=== PATIENT | female | born 1955 | race Caucasian/White ===

== ENCOUNTER → 2021-06-23 08:55 | Outpatient (CLI) | payer OTHER, SELFPAY ==
[2021-06-23 19:51] LABS: Add Manual Diff / Slide Review NO; Basophils Absolute Auto 100 /uL (0-100); Basophils Percent Auto 1.1 % (0-2); Eosinophils Absolute Auto 200 /uL (0-450); Hematocrit 37.6 % (36-46); Hemoglobin 12.3 g/dL (12.0-16.0); Lymphocytes Absolute Auto 1900 /uL (1100-4500); Mean Corpuscular HGB Conc 32.6 % (30-36); Mean Corpuscular Hemoglobin 31.2 PG (26-34); Mean Corpuscular Volume 95.4 fL (80-100); Monocytes Absolute Auto 700 /uL (0-900); Neutrophils Absolute Auto 6700 /uL (1500-7000); Neutrophils Percent Auto 69.9 % (50-75); Platelet Count 271 X10^3/uL (150-400); Red Blood Cell Count 3.93 X10^6/uL (4.0-5.2); Red Cell Distribution Width 14.3 % (11.6-14.8); White Blood Cell Count 9.6 X10^3/uL (4.5-11.0)
[2021-06-23 20:00] LABS: Hemoglobin A1C% w Est Avg Glu 5.8 % (4.0-6.0)
[2021-06-23 20:04] LABS: Alanine Aminotransferase 34 IU/L (<35); Albumin 4.1 g/dL (3.5-5.0); Albumin Globulin Ratio 1.1 (1.0-2.8); Alkaline Phosphatase 86 U/L (38-126); Aspartate Aminotransferase 33 IU/L (14-36); BUN Creatinine Ratio 16.7 (6-22); Bilirubin Total 0.2 mg/dL (0.2-1.3); Blood Urea Nitrogen 10 mg/dL (7-17); Calcium 9.5 mg/dL (8.4-10.2); Carbon Dioxide 31 mmol/L (22-32); Chloride 103 mmol/L (98-107); Cholesterol 204 mg/dL (140-199); Estimated Glomerular Filt Rate > 60.0 mL/min (>60); Globulin 3.7 g/dL (1.7-4.1); Glucose 134 mg/dL (80-110); HDL Cholesterol 54 mg/dL (40-60); HEMOLYSIS < 15 (0-50); LDL Cholesterol Calculated 90 mg/dL (<100); Potassium 4.5 mmol/L (3.4-5.1); Sodium 141 mmol/L (137-145); Total Protein 7.8 g/dL (6.3-8.2); Triglycerides 299 mg/dL (35-150)
[2021-06-23 20:17] LABS: Vitamin D 25 Hydroxy (D3) 41.5 ng/mL (30.0-100.0)
[2021-06-23 20:29] LABS: TSH w/ Reflex to FT4 2.38 uIU/mL (0.47-4.68)
== END ==
PROVIDERS: PCP Physician Assistant Medical; Visit Provider Physician Assistant Medical
DX: E11.9 Type 2 diabetes mellitus without complications (principal); E08.40 Diabetes mellitus due to underlying condition with diabetic neuropathy, unspecified; E55.9 Vitamin D deficiency, unspecified; E66.3 Overweight; E78.5 Hyperlipidemia, unspecified; I10 Essential (primary) hypertension; R73.9 Hyperglycemia, unspecified
CPT/HCPCS: 80053; 80061; 82306; 83036; 84443; 85025

== ENCOUNTER → 2021-09-20 08:42 | Outpatient (CLI) | payer OTHER, SELFPAY ==
[2021-09-20 19:51] LABS: COVID19 - ORCAS (NP or Nasal) Negative (Negative)
== END ==
PROVIDERS: PCP Physician Assistant Medical; Visit Provider Family Medicine
DX: U07.1 COVID-19 (principal)
CPT/HCPCS: U0003

== ENCOUNTER → 2021-09-21 15:09 | Outpatient (CLI) | payer OTHER, SELFPAY ==
--- NOTE | 2021-09-22 18:29 | DI.NM.S_ITS ---
DATE OF SERVICE: 09/21/2021 PROCEDURE: Exercise stress test. INDICATION: Palpitation, hypertension. CARDIAC STRESS: The patient underwent exercise stress test under the supervision of an attending staff. She walked on Jakub protocol for 3 minutes and 11 seconds, achieved 92 percent of target heart rate. There was hypertensive blood pressure response. Resting blood pressure 158/84 mmHg and peak blood pressure 220/110 mmHg. Baseline rhythm was sinus with up to 0.[address] depression in inferior leads, as well as lead V4 to V6, and some T- wave inversion in inferior lateral leads. During exercise, the patient had worsening ST depression up to 1 to 1.5 mm in the inferior lateral leads, which became downsloping in recovery. No complex significant arrhythmias seen. The patient developed significant shortness of breath, as well as chest tightness. Chest discomfort on a scale of 1 to 10, was 3 in intensity. It got resolved in recovery. CONCLUSION: Inconclusive exercise stress test for inducible ischemia due to baseline ST-T changes. However, the patient has anginal-type of chest discomfort and profound shortness of breath during exercise. Poor exercise tolerance. Exercise duration 3 minutes and 11 seconds on Jakub protocol with RAY positive 66 percent. Hypertensive blood pressure response. Baseline blood pressure 158/84 mmHg and peak blood pressure 220/110 mmHg. No complex arrhythmias seen. Correlate clinically and consider repeated stress with imaging modality like this perfusion study for better ischemic evaluation. Tyesha Lee - EBER/samantha/aram doc#: [id number]/job#: [id number] dd: 09/22/2021 17:26:00 dt: 09/22/2021 17:38:00 DICTATING MD/COPIES TO: Yolanda Arguelles MD; Antony Izquierdo MD COPIES MNE: CHAYITO;
== END ==
PROVIDERS: PCP Physician Assistant Medical; Referring Provider Internal Medicine Cardiovascular Disease; Visit Provider Internal Medicine Cardiovascular Disease
DX: R07.89 Other chest pain (principal); R00.2 Palpitations; I10 Essential (primary) hypertension; R06.02 Shortness of breath
CPT/HCPCS: 93017

== ENCOUNTER → 2021-12-15 12:03 | Outpatient (CLI) | payer OTHER, SELFPAY ==
[2021-12-15 19:00] LABS: BUN Creatinine Ratio 16.7 (6-22); Blood Urea Nitrogen 14 mg/dL (7-17); Calcium 9.9 mg/dL (8.4-10.2); Carbon Dioxide 32 mmol/L (22-32); Chloride 99 mmol/L (98-107); Estimated Glomerular Filt Rate > 60.0 mL/min (>60); Glucose 136 mg/dL (80-110); HEMOLYSIS < 15 (0-50); Potassium 4.3 mmol/L (3.4-5.1); Sodium 139 mmol/L (137-145)
[2021-12-15 19:22] LABS: Cortisol Random 10.2 ug/dL
[2021-12-30 11:54] LABS: Aldosterone/Renin Activity Rat 4.4 (0.0-30.0); Plama Renin, LC/MS/MS 1.383 ng/mL/hr (0.167-5.380)
== END ==
PROVIDERS: PCP Physician Assistant Medical; Visit Provider Internal Medicine Cardiovascular Disease
DX: I10 Essential (primary) hypertension (principal); R00.2 Palpitations; R94.39 Abnormal result of other cardiovascular function study
CPT/HCPCS: 80048; 82088; 82384; 82533; 84244

== ENCOUNTER → 2022-12-01 14:04 | Outpatient (CLI) | payer MEDICARE, SELFPAY | PROVIDERS: PCP Physician Assistant Medical; Visit Provider Physician Assistant Medical | DX: T14.8XXA Other injury of unspecified body region, initial encounter (principal); W50.3XXA Accidental bite by another person, initial encounter | CPT/HCPCS: 87070; 87075; 87077; 87147; 87185; 87186; 87205 ==

== ENCOUNTER → 2022-12-27 09:21 | Outpatient (CLI) | payer MEDICARE, SELFPAY ==
[2022-12-27 19:32] LABS: Add Manual Diff / Slide Review NO; Basophils Absolute Auto 0 /uL (0-100); Basophils Percent Auto 0.6 % (0-2); Eosinophils Absolute Auto 200 /uL (0-450); Eosinophils Percent Auto 3.6 % (2-4); Hematocrit 35.2 % (36-46); Lymphocytes Absolute Auto 1700 /uL (1100-4500); Lymphocytes Percent Auto 27.3 % (25-40); Mean Corpuscular Hemoglobin 31.3 PG (26-34); Mean Corpuscular Volume 92.1 fL (80-100); Monocytes Absolute Auto 500 /uL (0-900); Neutrophils Absolute Auto 3800 /uL (1500-7000); Neutrophils Percent Auto 60.5 % (50-75); Platelet Count 260 X10^3/uL (150-400); Red Blood Cell Count 3.82 X10^6/uL (4.0-5.2); Red Cell Distribution Width 13.9 % (11.6-14.8); White Blood Cell Count 6.4 X10^3/uL (4.5-11.0)
[2022-12-27 19:52] LABS: Alanine Aminotransferase 30 IU/L (<35); Albumin 3.9 g/dL (3.5-5.0); Alkaline Phosphatase 67 U/L (38-126); Aspartate Aminotransferase 28 IU/L (14-36); BUN Creatinine Ratio 18.5 (6-22); Bilirubin Total 0.3 mg/dL (0.2-1.3); Blood Urea Nitrogen 12 mg/dL (7-17); Calcium 9.1 mg/dL (8.4-10.2); Carbon Dioxide 29 mmol/L (22-32); Chloride 99 mmol/L (98-107); Cholesterol 192 mg/dL (140-199); Estimated Glomerular Filt Rate > 60 mL/min (>60); Globulin 3.9 g/dL (1.7-4.1); Glucose 133 mg/dL (80-110); HDL Cholesterol 57 mg/dL (40-60); HEMOLYSIS < 15 (0-50); LDL Cholesterol Calculated 86 mg/dL (<100); Potassium 4.2 mmol/L (3.4-5.1); Sodium 136 mmol/L (137-145); Total Protein 7.8 g/dL (6.3-8.2); Triglycerides 245 mg/dL (35-150)
[2022-12-29 02:07] LABS: Labcorp Hemoglobin (Hb) A1c 6.2 % (4.8-5.6)
== END ==
PROVIDERS: PCP Physician Assistant Medical; Visit Provider Physician Assistant Medical
DX: E11.65 Type 2 diabetes mellitus with hyperglycemia (principal); E55.9 Vitamin D deficiency, unspecified; E66.3 Overweight; E78.5 Hyperlipidemia, unspecified; F10.10 Alcohol abuse, uncomplicated; I10 Essential (primary) hypertension
CPT/HCPCS: 80053; 80061; 83036; 84443; 85025

== ENCOUNTER → 2023-04-05 09:08 | Outpatient (CLI) | payer MEDICARE, SELFPAY ==
[2023-04-05 20:04] LABS: Add Manual Diff / Slide Review NO; Basophils Absolute Auto 0 /uL (0-100); Basophils Percent Auto 0.7 % (0-2); Eosinophils Absolute Auto 200 /uL (0-450); Eosinophils Percent Auto 2.8 % (2-4); Hematocrit 36.4 % (36-46); Hemoglobin 12.2 g/dL (12.0-16.0); Lymphocytes Absolute Auto 1500 /uL (1100-4500); Lymphocytes Percent Auto 21.3 % (25-40); Mean Corpuscular HGB Conc 33.7 % (30-36); Mean Corpuscular Hemoglobin 31.5 PG (26-34); Mean Corpuscular Volume 93.4 fL (80-100); Monocytes Absolute Auto 600 /uL (0-900); Monocytes Percent Auto 8.3 % (3-14); Neutrophils Absolute Auto 4700 /uL (1500-7000); Neutrophils Percent Auto 66.9 % (50-75); Platelet Count 251 X10^3/uL (150-400); Red Blood Cell Count 3.89 X10^6/uL (4.0-5.2); Red Cell Distribution Width 13.6 % (11.6-14.8); White Blood Cell Count 7.1 X10^3/uL (4.5-11.0)
[2023-04-05 20:37] LABS: Alanine Aminotransferase 34 IU/L (<35); Albumin Globulin Ratio 1.1 (1.0-2.8); Alkaline Phosphatase 72 U/L (38-126); Aspartate Aminotransferase 31 IU/L (14-36); BUN Creatinine Ratio 16.7 (6-22); Bilirubin Total 0.4 mg/dL (0.2-1.3); Blood Urea Nitrogen 11 mg/dL (7-17); Calcium 9.2 mg/dL (8.4-10.2); Carbon Dioxide 30 mmol/L (22-32); Chloride 102 mmol/L (98-107); Cholesterol 148 mg/dL (140-199); Estimated Glomerular Filt Rate > 60 mL/min (>60); Globulin 3.8 g/dL (1.7-4.1); Glucose 135 mg/dL (80-110); HDL Cholesterol 53 mg/dL (40-60); HEMOLYSIS < 15 (0-50); LDL Cholesterol Calculated 49 mg/dL (<100); Potassium 4.3 mmol/L (3.4-5.1); Sodium 136 mmol/L (137-145); Total Protein 7.8 g/dL (6.3-8.2); Triglycerides 228 mg/dL (35-150)
[2023-04-05 21:05] LABS: Microalbumin Urine Random < 0.6 mg/dL (0-1.6)
[2023-04-06 22:07] LABS: x Labcorp Estim. Avg Glu (eAG) 131 mg/dL (.); x Labcorp Hemoglobin A1c 6.2 % (4.8-5.6)
== END ==
PROVIDERS: PCP Physician Assistant Medical; Visit Provider Physician Assistant Medical
DX: E66.3 Overweight; E78.5 Hyperlipidemia, unspecified; I48.91 Unspecified atrial fibrillation; L03.90 Cellulitis, unspecified; R00.2 Palpitations; E11.9 Type 2 diabetes mellitus without complications; I10 Essential (primary) hypertension
CPT/HCPCS: 80053; 80061; 82043; 82570; 83036; 85025

== ENCOUNTER → 2023-05-17 13:02 | Outpatient (CLI) | payer MEDICARE, SELFPAY ==
[2023-05-17 19:34] LABS: Alanine Aminotransferase 31 IU/L (<35); Albumin 3.9 g/dL (3.5-5.0); Albumin Globulin Ratio 1.1 (1.0-2.8); Alkaline Phosphatase 66 U/L (38-126); Aspartate Aminotransferase 35 IU/L (14-36); BUN Creatinine Ratio 19.2 (6-22); Bilirubin Total 0.3 mg/dL (0.2-1.3); Blood Urea Nitrogen 14 mg/dL (7-17); Calcium 9.3 mg/dL (8.4-10.2); Carbon Dioxide 31 mmol/L (22-32); Chloride 98 mmol/L (98-107); Estimated Glomerular Filt Rate > 60 mL/min (>60); Globulin 3.6 g/dL (1.7-4.1); Glucose 106 mg/dL (80-110); HEMOLYSIS < 15 (0-50); Potassium 4.2 mmol/L (3.4-5.1); Sodium 136 mmol/L (137-145); Total Protein 7.5 g/dL (6.3-8.2)
== END ==
PROVIDERS: PCP Physician Assistant Medical; Visit Provider Physician Assistant Medical
DX: I10 Essential (primary) hypertension (principal)
CPT/HCPCS: 80053

== ENCOUNTER → 2023-09-05 09:35 | Outpatient (CLI) | payer MEDICARE, SELFPAY ==
[2023-09-05 20:37] LABS: Alanine Aminotransferase 32 IU/L (<35); Albumin 3.9 g/dL (3.5-5.0); Albumin Globulin Ratio 1.2 (1.0-2.8); Alkaline Phosphatase 59 U/L (38-126); Aspartate Aminotransferase 31 IU/L (14-36); BUN Creatinine Ratio 18.8 (6-22); Bilirubin Total 0.4 mg/dL (0.2-1.3); Blood Urea Nitrogen 12 mg/dL (7-17); Calcium 9.6 mg/dL (8.4-10.2); Carbon Dioxide 32 mmol/L (22-32); Chloride 97 mmol/L (98-107); Estimated Glomerular Filt Rate > 60 mL/min (>60); Globulin 3.3 g/dL (1.7-4.1); Glucose 113 mg/dL (80-110); HEMOLYSIS < 15 (0-50); Sodium 137 mmol/L (137-145); Total Protein 7.2 g/dL (6.3-8.2)
[2023-09-05 20:44] LABS: Hemoglobin A1C% w Est Avg Glu 6.3 % (4.0-6.0)
== END ==
PROVIDERS: PCP Physician Assistant Medical; Visit Provider Physician Assistant Medical
DX: I10 Essential (primary) hypertension (principal); I48.91 Unspecified atrial fibrillation; F10.10 Alcohol abuse, uncomplicated; E08.40 Diabetes mellitus due to underlying condition with diabetic neuropathy, unspecified
CPT/HCPCS: 80053; 83036

== ENCOUNTER → 2023-12-25 09:32 | Outpatient (CLI) | payer MEDICARE, SELFPAY ==
[2023-12-25 19:40] LABS: Add Manual Diff / Slide Review NO; Basophils Absolute Auto 100 /uL (0-100); Basophils Percent Auto 0.7 % (0-2); Eosinophils Absolute Auto 300 /uL (0-450); Hematocrit 35.4 % (36-46); Hemoglobin 11.9 g/dL (12.0-16.0); Lymphocytes Absolute Auto 2000 /uL (1100-4500); Lymphocytes Percent Auto 22.2 % (25-40); Mean Corpuscular HGB Conc 33.6 % (30-36); Mean Corpuscular Hemoglobin 31.5 PG (26-34); Mean Corpuscular Volume 93.6 fL (80-100); Monocytes Absolute Auto 600 /uL (0-900); Monocytes Percent Auto 7.3 % (3-14); Neutrophils Absolute Auto 6000 /uL (1500-7000); Neutrophils Percent Auto 66.8 % (50-75); Platelet Count 334 X10^3/uL (150-400); Red Blood Cell Count 3.78 X10^6/uL (4.0-5.2); Red Cell Distribution Width 13.9 % (11.6-14.8); White Blood Cell Count 8.9 X10^3/uL (4.5-11.0)
[2023-12-25 19:54] LABS: Alanine Aminotransferase 22 IU/L (<35); Albumin 3.8 g/dL (3.5-5.0); Albumin Globulin Ratio 1.1 (1.0-2.8); Alkaline Phosphatase 64 U/L (38-126); Aspartate Aminotransferase 26 IU/L (14-36); BUN Creatinine Ratio 21.5 (6-22); Bilirubin Total 0.5 mg/dL (0.2-1.3); Blood Urea Nitrogen 14 mg/dL (7-17); Calcium 9.5 mg/dL (8.4-10.2); Carbon Dioxide 33 mmol/L (22-32); Chloride 102 mmol/L (98-107); Cholesterol 138 mg/dL (140-199); Estimated Glomerular Filt Rate > 60 mL/min (>60); Globulin 3.5 g/dL (1.7-4.1); Glucose 124 mg/dL (80-110); HDL Cholesterol 54 mg/dL (40-60); HEMOLYSIS < 15 (0-50); LDL Cholesterol Calculated 48 mg/dL (<100); Potassium 4.1 mmol/L (3.4-5.1); Sodium 139 mmol/L (137-145); Total Protein 7.3 g/dL (6.3-8.2); Triglycerides 178 mg/dL (35-150)
[2023-12-25 20:21] LABS: Creatinine Urine Random 33.7 mg/dL
[2023-12-25 20:24] LABS: Microalbumi Creatinin Ratio Ur 26.7 ug/mg CR (<30); Microalbumin Urine Random 0.9 mg/dL (0-1.6)
== END ==
PROVIDERS: PCP Physician Assistant Medical; Visit Provider Physician Assistant Medical
DX: E11.9 Type 2 diabetes mellitus without complications (principal)
CPT/HCPCS: 80053; 80061; 82043; 82570; 85025

== ENCOUNTER → 2024-06-24 10:02 | Outpatient (CLI) | payer MEDICARE, SELFPAY ==
--- NOTE | 2024-06-24 | DI.ECHO.S_ITS ---
[facility]+ [facility] : : [id number] : : [place] : : [id number] : : Phone: [phone] Echocardiogram Report + + :Name: TERRY BROCK Study Date: 06/24/2024 Height: 66 in : :[facility] ReadingLocation: Weight: 180 lb : : Gender: Female BSA: 1.9 m2 : :: 1955 Age: 68 yrs BP: 149/84 mmHg: :Reason For Study: DYSPNEA ON EXERTION, CHEST PAIN : :Ordering Physician: ANTONIA, : :BETTE Performed By: Deysi Dan : :Referring: BETTE KINGHT : + + Interpretation Summary The left ventricle is normal in size and wall thickness. The left ventricular ejection fraction is normal. The ejection fraction is estimated to be 60-65%. The right ventricle is normal in size and function. There is mild mitral regurgitation. There is mild tricuspid regurgitation. Pulmonary artery pressures cannot be estimated because of the lack of a measurable TR jet velocity. The IVC is of normal diameter and collapses greater than 50% with a sniff. This suggests a low right atrial pressure of 3 mm Hg. Mild atherosclerotic plaque(s) in the aortic arch. Procedure: A two-dimensional transthoracic echocardiogram with color flow and Doppler was performed. The study quality was technically adequate. There is no prior echocardiogram noted for this patient. The patient was in sinus rhythm with heart rates between 74-86 bpm during the exam. Left Ventricle: The left ventricle is normal in size and wall thickness. There is no thrombus. The ejection fraction is estimated to be 60-65%. The left ventricular ejection fraction is normal. There are no focal wall motion abnormalities. MV E/A: 2.2 Med Peak E' Paul: 7.6 cm/sec E/E' med: 11.6. Right Ventricle: The right ventricle is normal in size and function. Atria: The left atrium is mildly dilated. Right atrial size is normal. There is no Doppler evidence for an interatrial shunt. Mitral Valve: There is mild mitral annular calcification. There is mild mitral regurgitation. Aortic Valve: The aortic valve is trileaflet. The aortic valve is mildly calcified. There is discrete nodular thickening of the left coronary cusp. There is no aortic valve stenosis. No aortic regurgitation is present. Tricuspid Valve: The tricuspid valve is normal in structure and function. There is mild tricuspid regurgitation. Pulmonary artery pressures cannot be estimated because of the lack of a measurable TR jet velocity. Pulmonic Valve: The pulmonic valve leaflets are thin and pliable; valve motion is normal. There is mild pulmonic regurgitation. Great Vessels: The aortic root is normal size. The dimensions of the ascending aorta are normal. Mild atherosclerotic plaque(s) in the aortic arch. The IVC is of normal diameter and collapses greater than 50% with a sniff. This suggests a low right atrial pressure of 3 mm Hg. Pericardium/ Pleura There is no pericardial effusion. There is no pleural effusion. MMode/2D Measurements & Calculations LVIDd: 4.2 cm LVOT diam: 2.0 cm LVIDs: 2.6 cm Ao root diam: 2.6 cm FS: 38.4 % asc Aorta Diam: 3.2 cm IVSd: 0.89 cm Ao Arch Diam (Prox Trans): 3.4 cm LVPWd: 0.91 cm LV alex. diameter/BSA (cm/m^2): 2.2 LV sys. diameter/BSA (cm/m^2): 1.4 LA A2 area: 21.9 cm2 RA long axis: 5.3 cm LA A4 area: 19.0 cm2 RA area: 14.7 cm2 LA length (vol): 5.8 cm RA vol: 34.8 ml LA vol: 60.5 ml RA : 18.2 ml/m2 LA vol index: 31.6 ml/m2 IVC diam: 1.6 cm RVD1 (basal): 3.4 cm RVD2 (mid): 2.7 cm TAPSE: 2.7 cm Doppler Measurements & Calculations Ao V2 max: 176.0 cm/sec LVOT Max Paul: 94.1 cm/sec Ao V2 mean: 120.4 cm/sec LV V1 max P.5 mmHg Ao max P.4 mmHg LV V1 VTI: 22.3 cm Ao mean P.4 mmHg CONNIE(I,D): 1.9 cm2 Ao V2 VTI: 37.6 cm CONNIE(V,D): 1.7 cm2 sev ratio: 0.59 CONNIE indexed to BSA (cm^2/m^2): 1.00 MV E max paul: 88.8 cm/sec PA V2 max: 105.1 cm/sec MV A max paul: 41.1 cm/sec PA V2 mean: 76.0 cm/sec MV E/A: 2.2 PA mean P.5 mmHg Med Peak E' Paul: 7.6 cm/sec PA pr(Accel): 34.5 mmHg E/E' med: 11.6 Lat Peak E' Paul: 8.6 cm/sec E/E' lat: 10.3 E/e' average: 11.0 MV dec time: 0.21 sec SV([facility]): 71.6 ml Reading Physician:02:05 PM
--- NOTE | 2024-06-24 21:46 | DI.NM.S_ITS ---
DATE OF SERVICE: 06/24/2024 NUCLEAR CARDIOLOGY MYOCARDIAL PERFUSION STUDY PROCEDURE: Pharmacologic vasodilator stress and rest myocardial perfusion imaging with gating to assess ejection fraction and regional wall motion. ORDERING PROVIDER: Ady Chávez MD. INDICATIONS: The patient is a 68-year-old female with hypertension and exertional dyspnea. CARDIAC STRESS: Per protocol, 0.4 mg of regadenoson was infused, augmented by walking on a treadmill at 1.0 mph at 0% grade. With this, she had an accelerated heart rate response achieving a maximum heart rate of 120 bpm, and a hypertensive blood pressure response with a resting blood pressure of 160/92, increasing to a maximum of 200/100. With this, she had significant dyspnea and reportedly had a mottled skin appearance, but had no chest pain. Her resting ECG shows sinus rhythm with mild resting ST-segment abnormalities in the inferolateral leads, consistent with a strain pattern, and which become slightly accentuated with stress but remain nonspecific because of the baseline abnormality. She had occasional PVCs but no complex arrhythmias. Per protocol, 24.8 mCi of technetium-99m Myoview was injected and she was imaged 15 minutes later using a gated SPECT acquisition protocol. Earlier in the day while at rest, she had been injected with 12.5 mCi of technetium-99m Myoview and was imaged 15 minutes later, again using a gated SPECT acquisition protocol. FINDINGS: RAW DATA: There is fairly good myocardial tracer uptake with subtle breast shadows noted. The lung/heart ratio is normal at 0.25 with a normal TID ratio of 0.98. QUANTITATED GATED SPECT: Post-stress ejection fraction is estimated at 69% without any focal wall motion abnormality and specifically the distal anterior wall has normal contractility. The resting ejection fraction is 72% with a normal resting end-diastolic volume of 94 mL. MYOCARDIAL PERFUSION SCAN: Post-stress supine images show a fairly normal myocardial perfusion pattern except for a very subtle defect in the distal anterior wall extending to the apex that completely resolves on the prone imaging, suggesting it likely reflects an attenuation artifact. The resting images show a similar perfusion pattern although with slight improvement in the distal anterior wall defect but this is nonspecific given its resolution on the prone images. IMPRESSION: 1. Probable normal myocardial perfusion study. 2. There is a small, subtle, partially reversible perfusion defect in the distal anterior wall that completely resolves on the prone images, suggesting that it likely reflects breast attenuation artifact, although a small volume of myocardial ischemia cannot be entirely excluded, yet is low risk. 2. Normal left ventricular systolic function without any focal wall motion abnormality and normal left ventricular volumes. 3. No angina, but significant dyspnea, with pharmacologic vasodilator stress augmented by walking, with associated with significant tachycardia and a hypertensive blood pressure response. Baseline ST-segment abnormalities suggest a strain pattern and become more accentuated with stress but remain nonspecific for ischemia. She had occasional isolated PVCs, but no complex ectopy. Tyesha Lee - RS/fn/AR doc#: [id number]/job#: [id number] dd: 06/24/2024 16:51:00 dt: 06/24/2024 21:21:00 DICTATING MD/COPIES TO: Lázaro Casarez MD; Ady Chávez MD COPIES MNE: LUIS; ; Ady Chávez MD
== END ==
PROVIDERS: PCP Physician Assistant Medical; Referring Provider Internal Medicine Cardiovascular Disease; Visit Provider Internal Medicine Cardiovascular Disease
DX: I27.20 Pulmonary hypertension, unspecified (principal); I08.1 Rheumatic disorders of both mitral and tricuspid valves; R06.09 Other forms of dyspnea; I70.0 Atherosclerosis of aorta
CPT/HCPCS: 78452; 93017; 93306; A9502; J2785

== ENCOUNTER → 2024-07-22 10:00 | Outpatient (CLI) | payer MEDICARE, SELFPAY ==
[2024-07-22 19:30] LABS: Add Manual Diff / Slide Review NO; Basophils Absolute Auto 0 /uL (0-100); Basophils Percent Auto 0.5 % (0-2); Eosinophils Absolute Auto 200 /uL (0-450); Eosinophils Percent Auto 2.4 % (2-4); Hematocrit 35.5 % (36-46); Lymphocytes Absolute Auto 2000 /uL (1100-4500); Lymphocytes Percent Auto 24.1 % (25-40); Mean Corpuscular HGB Conc 33.9 % (30-36); Mean Corpuscular Hemoglobin 31.1 PG (26-34); Mean Corpuscular Volume 91.6 fL (80-100); Monocytes Absolute Auto 600 /uL (0-900); Monocytes Percent Auto 6.6 % (3-14); Neutrophils Absolute Auto 5600 /uL (1500-7000); Neutrophils Percent Auto 66.4 % (50-75); Platelet Count 294 X10^3/uL (150-400); Red Blood Cell Count 3.88 X10^6/uL (4.0-5.2); Red Cell Distribution Width 13.8 % (11.6-14.8); White Blood Cell Count 8.5 X10^3/uL (4.5-11.0)
[2024-07-22 19:52] LABS: HEMOLYSIS < 15 (0-50); Potassium 4.1 mmol/L (3.4-5.1)
[2024-07-22 19:56] LABS: Alanine Aminotransferase 22 IU/L (<35); Albumin 4.1 g/dL (3.5-5.0); Albumin Globulin Ratio 1.3 (1.0-2.8); Alkaline Phosphatase 52 U/L (38-126); Aspartate Aminotransferase 30 IU/L (14-36); BUN Creatinine Ratio 21.3 (6-22); Bilirubin Total 0.4 mg/dL (0.2-1.3); Blood Urea Nitrogen 17 mg/dL (7-17); Calcium 9.4 mg/dL (8.4-10.2); Carbon Dioxide 28 mmol/L (22-32); Chloride 101 mmol/L (98-107); Cholesterol 129 mg/dL (140-199); Estimated Glomerular Filt Rate > 60 mL/min (>60); Globulin 3.1 g/dL (1.7-4.1); Glucose 117 mg/dL (80-110); HDL Cholesterol 48 mg/dL (40-60); LDL Cholesterol Calculated 61 mg/dL (<100); Sodium 137 mmol/L (137-145); Total Protein 7.2 g/dL (6.3-8.2); Triglycerides 101 mg/dL (35-150)
== END ==
PROVIDERS: PCP Physician Assistant Medical; Visit Provider Physician Assistant Medical
DX: E78.1 Pure hyperglyceridemia (principal); I10 Essential (primary) hypertension; I48.91 Unspecified atrial fibrillation; E78.5 Hyperlipidemia, unspecified; E11.65 Type 2 diabetes mellitus with hyperglycemia
CPT/HCPCS: 80053; 80061; 83036; 84443; 85025

== ENCOUNTER → 2024-07-30 10:10 | Outpatient (CLI) | payer MEDICARE, SELFPAY ==
[2024-07-30 19:40] LABS: C-Reactive Protein Quant < 0.5 mg/dL (<1.0)
[2024-07-30 19:45] LABS: Rheumatoid Factor < 8.6 IU/mL (<12.0)
[2024-07-30 20:36] LABS: Erythrocyte Sedimentation Rate 25 MM/HR (0-20)
== END ==
PROVIDERS: PCP Physician Assistant Medical; Visit Provider Physician Assistant Medical
DX: M79.645 Pain in left finger(s) (principal); G89.29 Other chronic pain; M65.4 Radial styloid tenosynovitis [de Quervain]; D68.59 Other primary thrombophilia; M19.90 Unspecified osteoarthritis, unspecified site; E08.40 Diabetes mellitus due to underlying condition with diabetic neuropathy, unspecified; I10 Essential (primary) hypertension
CPT/HCPCS: 85651; 86140; 86430

== ENCOUNTER → 2025-01-30 11:53 | Outpatient (CLI) | payer MEDICARE, SELFPAY | LOC: PHYS 11:53 | PROVIDERS: Family Provider Physician Assistant Medical; PCP Physician Assistant Medical; Referring Provider Physician Assistant Medical; Visit Provider Physician Assistant Medical | DX: M79.642 Pain in left hand (principal) | CPT/HCPCS: 95885; 95886; 95912 ==

== ENCOUNTER → 2025-07-22 09:35 | Outpatient (CLI) | payer MEDICARE, SELFPAY ==
[2025-07-22 19:20] LABS: Add Manual Diff / Slide Review NO; Hematocrit 35.4 % (36-46); Hemoglobin 11.9 g/dL (12.0-16.0); Lymphocytes Absolute Auto 2200 /uL (1100-4500); Mean Corpuscular HGB Conc 33.6 % (30-36); Mean Corpuscular Hemoglobin 30.8 PG (26-34); Mean Corpuscular Volume 91.9 fL (80-100); Platelet Count 342 X10^3/uL (150-400)
[2025-07-22 19:27] LABS: Hemoglobin A1C% w Est Avg Glu 5.6 % (4.0-6.0)
[2025-07-22 19:45] LABS: Alanine Aminotransferase 22 IU/L (<35); Albumin 4.4 g/dL (3.5-5.0); Albumin Globulin Ratio 1.3 (1.0-2.8); Alkaline Phosphatase 58 U/L (38-126); Blood Urea Nitrogen 15 mg/dL (7-17); Calcium 9.6 mg/dL (8.4-10.2); Carbon Dioxide 27 mmol/L (22-32); Chloride 97 mmol/L (98-107); Cholesterol 145 mg/dL (140-199); Estimated Glomerular Filt Rate > 60 mL/min (>60); Globulin 3.5 g/dL (1.7-4.1); Glucose 139 mg/dL (70-99); HDL Cholesterol 56 mg/dL (40-60); HEMOLYSIS < 15 (0-50); Potassium 4.1 mmol/L (3.4-5.1); Sodium 134 mmol/L (137-145); Total Protein 7.9 g/dL (6.3-8.2); Triglycerides 171 mg/dL (35-150)
[2025-07-22 19:58] LABS: TSH w/ Reflex to FT4 1.57 uIU/mL (0.47-4.68)
== END ==
PROVIDERS: Family Provider Physician Assistant Medical; PCP Physician Assistant Medical; Visit Provider Physician Assistant Medical
DX: E11.65 Type 2 diabetes mellitus with hyperglycemia (principal); I10 Essential (primary) hypertension; E78.1 Pure hyperglyceridemia; I48.91 Unspecified atrial fibrillation; R00.2 Palpitations; E55.9 Vitamin D deficiency, unspecified; E66.3 Overweight; E11.40 Type 2 diabetes mellitus with diabetic neuropathy, unspecified
CPT/HCPCS: 80053; 80061; 83036; 84443; 85025

== ENCOUNTER → 2025-08-27 12:18 | Outpatient (CLI) | payer MEDICARE, SELFPAY | PROVIDERS: Family Provider Physician Assistant Medical; PCP Physician Assistant Medical; Visit Provider Physician Assistant Medical | DX: E78.5 Hyperlipidemia, unspecified (principal); E08.40 Diabetes mellitus due to underlying condition with diabetic neuropathy, unspecified; I10 Essential (primary) hypertension | CPT/HCPCS: 82043; 82570 ==